=== PATIENT | female | born 1975 | race Caucasian/White ===

== ENCOUNTER 2016-03-17 23:15 | Emergency (ER) | payer OTHER ==
[2016-03-17 23:46] VITALS: BP 136/92; PULSE 78; TEMP 97.3; BMI 22.4
--- NOTE | 2016-03-17 23:48 | PDOC ---
History of Present Illness - General Chief Complaint: Pain, Acute Stated Complaint: NAUSEA/VOMITING Time Seen by Provider: 03/17/16 23:42 History Source: Patient Exam Limitations: No Limitations - History of Present Illness Travel History: No Timing/Duration: reports: intermittent Abdominal Pain Onset Location: reports: LLQ Pain Radiation: reports: no radiation Past History - Travel Traveled outside of the country in the last 30 days: No Close contact w/someone who was outside of country & ill: No - Past Medical History Allergies/Adverse Reactions: Allergies Allergy/AdvReac Type Severity Reaction Status Date / Time No Known Allergies Allergy Verified 03/17/16 23:43 Home Medications: Ambulatory Orders Levetiracetam [Keppra -] 1,000 mg PO BID 10/18/11 Ibuprofen [Motrin -] 600 mg PO QID PRN #28 tablet 03/28/15 Aspirin Coated [Ecotrin -] 325 mg PO DAILY #30 tablet. 03/31/15 Anemia: No Asthma: No Cancer: No Cardiac Disorders: No CVA: No COPD: No CHF: No Dementia: No Diabetes: No GI Disorders: Yes (ABD. PAIN) Disorders: No HTN: No Hypercholesterolemia: No Liver Disease: No Seizures: Yes Thyroid Disease: No - Surgical History Abdominal Surgery: Yes Appendectomy: No Cardiac Surgery: No Cholecystectomy: No Lung Surgery: No Neurologic Surgery: No Orthopedic Surgery: No - Immunization History Immunization Up to Date: Yes - Psycho/Social/Smoking Cessation Hx Suicidal Ideation: No Smoking Status: No Smoking History: Never smoked Have you smoked in the past 12 months: No Number of Cigarettes Smoked Daily: 0 Hx Alcohol Use: No Drug/Substance Use Hx: No Substance Use Type: None Hx Substance Use Treatment: No Abd/GI Specific PMHX - Complaint Specific PMHX Diverticulitis: No Gall Bladder Disease: No GERD: No Hepatitis: No Review of Systems - Review of Systems Able to Perform ROS?: Yes Comments:: 03/17/16 23:47 CONSTITUTIONAL: Absent: fever, chills, diaphoresis, generalized weakness, malaise, loss of appetite HEENT: Absent: rhinorrhea, nasal congestion, throat pain, throat swelling, difficulty swallowing, mouth swelling, ear pain, eye pain, visual Changes CARDIOVASCULAR: Absent: chest pain, loss of consciousness, palpitations, irregular heart rate, peripheral edema RESPIRATORY: Absent: cough, shortness of breath, dyspnea with exertion, orthopnea, wheezing, stridor, hemoptysis GASTROINTESTINAL: +nausea, vomiting, +llq pain Absent: abdominal distension, diarrhea, constipation, melena, hematochezia GENITOURINARY: Absent: dysuria, frequency, urgency, hesitancy, hematuria, flank pain, genital pain MUSCULOSKELETAL: Absent: myalgia, arthralgia, joint swelling SKIN: Absent: rash, itching, pallor HEMATOLOGIC/IMMUNOLOGIC: Absent: easy bleeding, easy bruising, lymphadenopathy, frequent infections ENDOCRINE: Absent: unexplained weight gain, unexplained weight loss, heat intolerance, cold intolerance NEUROLOGIC: Absent: headache, focal weakness or paresthesias, dizziness, unsteady gait, seizure, mental status changes, bladder or bowel incontinence PSYCHIATRIC: Absent: anxiety, depression, suicidal or homicidal ideation, hallucinations. Is the patient limited Filipino proficient: No *Physical Exam - Vital Signs Last Vital Signs Temp Pulse Resp BP Pulse Ox 97.3 F L 78 18 136/92 100 03/17/16 23:44 03/17/16 23:44 03/17/16 23:44 03/17/16 23:44 03/17/16 23:44 - Physical Exam Comments: 03/17/16 23:47 GENERAL: Well developed, well nourished. Awake and alert. No acute distress. HEENT: Normocephalic, atraumatic. PERRLA, EOMI. No conjunctival pallor. Sclera are non- icteric. Moist mucous membranes. Oropharynx is clear. NECK: Supple. Full ROM. No JVD. Carotid pulses 2+ and symmetric, without bruits. No thyromegaly. No lymphadenopathy. CARDIOVASCULAR: Regular rate and rhythm. No murmurs, rubs, or gallops. Distal pulses are 2+ and symmetric. PULMONARY: No evidence of respiratory distress. Lungs clear to auscultation bilaterally. No wheezing, rales or rhonchi. ABDOMINAL: +LLQ pain on palp Soft. Non-distended. No rebound or guarding. No organomegaly. Normoactive bowel sounds. MUSCULOSKELETAL Normal range of motion at all joints. No bony deformities or tenderness. No CVA tenderness. EXTREMITIES: No cyanosis. No clubbing. No edema. No calf tenderness. SKIN: Warm and dry. Normal capillary refill. No rashes. No jaundice. NEUROLOGICAL: Alert, awake, appropriate. Cranial nerves 2-12 intact. No deficits to light touch and temperature in face, upper extremities and lower extremities. No motor deficits in the in face, upper extremities and lower extremities. Normoreflexic in the upper and lower extremities. Normal speech. Toes are down- going bilaterally. Gait is normal without ataxia. PSYCHIATRIC: Cooperative. Good eye contact. Appropriate mood and affect. ED Treatment Course - LABORATORY CBC & Chemistry Diagram: 03/17/16 23:55 03/17/16 23:55 - RADIOLOGY Radiograph Interpretation: 03/18/16 04:15 Patient Name: Gertrudis Quinonez THIS IS A PRELIMINARY REPORT FROM [facility] DATE OF SERVICE: 2016-03-18 03:44:06.0 IMAGES: 357 EXAM: CT abdomen and pelvis without contrast COMPARISON: None. IMPRESSION: . Bilateral nephrolithiasis. Suggestion of a calculus in the distal left ureter with proximal moderate left hydroureteronephrosis and perinephric fat stranding. A small fluid seen in the left perirenal space. Extrarenal right pelvis. Multiple pelvic phleboliths. Underdistention versus wall thickening of the urinary bladder. Correlate clinically to exclude cystitis. Suggestion of a 2.3 x 2.0 cm left adnexal cyst. Degenerative disc disease with posterior disc protrusions at L4-5 and L5-S1. Is also moderate bilateral neural frontal narrowing at L5-S1. No acute fracture. Nonspecific mild hepatomegaly. No bowel obstruction or pneumoperitoneum. THIS DOCUMENT HAS BEEN ELECTRONICALLY SIGNED Ca Ojeda MD. Progress Note - Progress Note Progress Note: 40-year-old female presents to the emergency department complaining of nausea/ vomiting 8 hours with left lower quadrant pain radiating to left flank. Pain is described as 8/10 dull nonradiating intermittent discomfort. There are no exacerbating or alleviating factors. Patient denies fever, chills, headaches, chest pain, shortness of breath, vaginal bleed or discharge. *DC/Admit/Observation/Transfer Diagnosis at time of Disposition: Calculus of kidney - Discharge Dispostion Disposition: HOME Condition at time of disposition: Fair - Referrals Referrals: Sharda Pascual [Primary Care Provider] - Surinder Christine MD [Staff Physician] - - Patient Instructions Printed Discharge Instructions: Kidney Stones -- Adult Additional Instructions: Increase fluids Take Tylenol for mild pain Take the prescription of Toradol as needed for severe pain Follow-up with the urologist this week Return back to the emergency department for severe/persistent or worsening symptoms.
[2016-03-17] MEDS ORDERED: METOCLOPRAMIDE HCL INJECTION 10 MG/2 ML VIAL IVPUSH ONE (23:50)
[2016-03-17] MEDS ORDERED: SODIUM CHLORIDE 1,000 ML IV STA (23:50)
[2016-03-18] MEDS ORDERED: morphine CARPU-JECT 2 MG/1 ML DISP.SYRIN IVPUSH ONE (00:01)
[2016-03-18 00:08] LABS: BASOPHIL 0.5 % (0-2.0); EOSINOPHIL 0.2 % (0-4.5); MCH 29.4 pg (25.7-33.7); MCHC 33.3 g/dl (32.0-36.0); MEAN CELL VOLUME 88.3 fl (80-96); MEAN PLT VOLUME 8.2 fl (7.5-11.1); NEUTROPHILS 83.3 % (42.8-82.8); PLATELET COUNT 163 K/MM3 (134-434); RDW 12.7 % (11.6-15.6); WHITE BLOOD COUNT 8.4 K/mm3 (4.0-10.0)
[2016-03-18 00:36] LABS: ALBUMIN 3.9 g/dl (3.4-5.0); ANION GAP 12 (8-16); CALCIUM 8.7 mg/dL (8.5-10.1); CO2 23 mmol/L (21-32); CREATININE 0.8 mg/dL (0.55-1.02); GLUCOSE,RANDOM 192 mg/dL (74-106); SGOT/AST 16 U/L (15-37); SGPT/ALT 19 U/L (12-78)
[2016-03-18 00:37] LABS: ALK PHOS 81 U/L (45-117); BILIRUBIN,TOTAL 0.3 mg/dL (0.2-1.0); TOT PROT 7.1 g/dl (6.4-8.2)
[2016-03-18] MEDS ORDERED: KETOROLAC TROMETHAMINE 30 MG/1 ML VIAL IVPUSH ONE (01:09)
[2016-03-18] MEDS ORDERED: METOCLOPRAMIDE HCL INJECTION 10 MG/2 ML VIAL ONE (01:24)
[2016-03-18 01:38] LABS: URINE APPEARANCE SLCLOUDY; URINE BILIRUBIN NEGATIVE (NEGATIVE); URINE COLOR LTYELLOW; URINE GLUCOSE (UA) 2+ (NEGATIVE); URINE KETONE 2+ (NEGATIVE); URINE NITRITE NEGATIVE (NEGATIVE); URINE PROTEIN NEGATIVE (NEGATIVE); URINE UROBILINOGEN NEGATIVE E.U./dl (0.2-1.0)
[2016-03-18 01:39] LABS: URINE BLOOD 3+ (NEGATIVE); URINE LEUK ESTERASE TRACE (NEGATIVE)
[2016-03-18 01:51] LABS: URINE BACTERIA RARE /hpf (NONE SEEN); URINE MUCUS RARE; URINE RBC 154 /hpf (0-3)
[2016-03-18] MEDS ORDERED: OXYCODONE/APAP 5/325MG COMBO TABLET ONE (04:30)
[2016-03-18] MEDS ORDERED: OXYCODONE/APAP 5/325MG COMBO TABLET PO ONE (04:38)
== END 2016-03-18 04:40 | disposition home or self-care (01) ==
LOC: JER 23:15
PROC: 3E0333Z Introduction of Anti-inflammatory into Peripheral Vein, Percutaneous Approach (ICD-10-PCS; principal; 2016-03-17)
PROC: 3E033GC Introduction of Other Therapeutic Substance into Peripheral Vein, Percutaneous Approach (ICD-10-PCS; 2016-03-17)
DX: N20.0 Calculus of kidney (principal)
CPT/HCPCS: 36415; 74176; 80053; 81003; 81015; 84703; 85025; 96374; 96375; 99281-25

== ENCOUNTER → 2018-06-20 | Day surgery (SDC) | payer OTHER ==
--- NOTE | 2018-06-24 13:04 | PATH ---
Cytology Non-Gynecological Report Patient Name: FLOWER SCOTT [facility]. Rec. #: [id number] /Age/Gender: 1975 (Age: 43) / F Account: [id number] Location: RADIOLOGY INTER Taken: 06/20/2018 Received: 06/20/2018 Reported: 06/23/2018 Physicians: Karina Durham M.D. Specimen(s) Received BREAST,ULTRA SOUND GUIDED FNA Clinical History Left breast, 1-2:00, enlarging cysts, 3.12 cm Final Diagnosis BREAST, LEFT, 1- 2:00, ULTRASOUND GUIDED FINE NEEDLE ASPIRATION: PREDOMINANTLY COMPRISED OF BLOOD AND RARE DEBRIS. NO DUCTAL CELLS OR MACROPHAGES IDENTIFIED. Comment: Findings are insufficient for definitive diagnosis. Suggest clinical and radiologic correlation with repeat sampling, as clinically warranted. Electronically Signed Gogo Covarrubias M.D. Gross Description Approximately 50 cc of greenish fluid received fixed in 50% alcohol. One cytofunnel prepared and Pap stained. One cellblock prepared.
== END | disposition home or self-care (01) ==
LOC: JRADIR 08:40 → JRADUS-SUR 08:40
PROVIDERS: ATTEND Surgery
PROC: 0H9U3ZX Drainage of Left Breast, Percutaneous Approach, Diagnostic (ICD-10-PCS; principal; 2018-06-20)
DX: N60.02 Solitary cyst of left breast (principal)
CPT/HCPCS: 19000; 19001; 76942-TC; 87899; 88173

== ENCOUNTER 2018-11-18 11:48 | Inpatient (IN) | payer OTHER ==
--- NOTE | 2018-11-18 18:07 | HP ---
Admitting History and Physical - Primary Care Physician PCP: Misti George - Admission History of Present Illness: is a very pleasant 43-year-old right-handed female patientwith history of complex partial seizure presents to the hospital for elective admission with chief complaint of 2 episodes of fainting. Patient had a recent EEG monitoring at home which revealed no evidence of seizure. Patient is currently on Keppra 1000 mg twice daily. No report of any change in behavior no report of any recent fall. Patient denies any weight loss or weight gain patient is on a full aspirin few years ago patient presented to the hospital with extreme dizziness MRI of the brain confirmed the presence of stroke's extensive work up revealed no evidence of source of the stroke. History Source: Patient Limitations to Obtaining History: No Limitations - Past Medical History LEARNING MANAGER: Yes: Migraine, Seizure - Smoking History Smoking history: Never smoked Have you smoked in the past 12 months: No Aproximately how many cigarettes per day: 0 - Alcohol/Substance Use Hx Alcohol Use: No - Social History ADL: Independent History of Recent Travel: No Home Medications - Allergies Allergies/Adverse Reactions: Allergies Allergy/AdvReac Type Severity Reaction Status Date / Time No Known Allergies Allergy Verified 03/17/16 23:43 - Home Medications Home Medications: Ambulatory Orders levETIRAcetam [Keppra -] 1,000 mg PO BID 10/18/11 Ibuprofen [Motrin -] 600 mg PO QID PRN #28 tablet 03/28/15 Aspirin Coated [Ecotrin -] 325 mg PO DAILY #30 tablet. 03/31/15 Ketorolac Tromethamine [Toradol] 10 mg PO TID #21 tablet 03/18/16 Cephalexin [Keflex] 500 mg PO BID #14 capsule 08/12/17 Ondansetron HCl [Zofran] 4 mg PO QID #10 tablet 08/12/17 Oxycodone HCl/Acetaminophen [Oxycodone-Acetaminophen 5-325] 1 each PO QID #14 tablet MDD 6 08/12/17 Tamsulosin HCl [Flomax] 0.4 mg PO DAILY #7 cap.er.24h 08/12/17 Family Medical History Family History: Denies Review of Systems - Review of Systems Constitutional: reports: No Symptoms Eyes: reports: No Symptoms Neurological: reports: No Symptoms Physical Examination Constitutional: Yes: Well Nourished Eyes: Yes: WNL HENT: Yes: WNL Neck: Yes: WNL Neurological: Yes: Alert, Oriented, Babinski negative ...Motor Strength: WNL Problem List - Problems (1) Seizures Assessment/Plan: 1. admit to the elective admission for video EEG monitoring. 2. Continue Keppra the same. 3. Obtain Keppra level. 4. Seizure precautions. 5. Ativan when necessary seizure. 6. Connection to the video EEG monitoring digital analysis 72 hours. Code(s): R56.9 - UNSPECIFIED CONVULSIONS
[2018-11-18 19:05] VITALS: BMI 24.0
[2018-11-18] MEDS ORDERED: PT OWN MED DRAWER 7, Y5N ONE (21:20)
[2018-11-18] MEDS ORDERED: levETIRAcetam 250 MG TABLET (FP) PO SCH (22:00)
[2018-11-18] MEDS: OXcarbazepine 300 MG/5 ML UNIT DOSE CUPS PO SCH (22:51)
[2018-11-18 23:24] LABS: BASO % 0.7 % (0-2.0); EOS % 3.3 % (0-4.5); HEMATOCRIT 38.6 % (32.4-45.2); HEMOGLOBIN 12.9 GM/dL (10.7-15.3); LYMPH % 36.6 % (8-40); MCH 29.9 pg (25.7-33.7); MCHC 33.4 g/dl (32.0-36.0); MEAN CELL VOLUME 89.5 fl (80-96); NEUT % 48.4 % (42.8-82.8); PLATELET COUNT 182 K/MM3 (134-434); RBC 4.31 M/mm3 (3.60-5.2); RDW 13.3 % (11.6-15.6); WHITE BLOOD COUNT 5.5 K/mm3 (4.0-10.0)
[2018-11-18 23:53] LABS: ALBUMIN 3.3 g/dl (3.4-5.0); BILIRUBIN,DIRECT 0.1 mg/dL (0.0-0.2); BILIRUBIN,TOTAL 0.3 mg/dL (0.2-1); BLOOD UREA NITROGEN 20.2 mg/dL (7-18); CALCIUM 8.3 mg/dL (8.5-10.1); CREATININE 0.6 mg/dL (0.55-1.3); POTASSIUM 3.9 mmol/L (3.5-5.1); TOT PROT 6.2 g/dl (6.4-8.2)
[2018-11-19] MEDS: OXcarbazepine 300 MG/5 ML UNIT DOSE CUPS PO SCH ×2 (09:52→22:22)
[2018-11-19] MEDS: ASPIRIN 325 MG TABLET PO SCH (09:52)
--- NOTE | 2018-11-19 10:55 | PN ---
Progress Note, Physician History of Present Illness: eevents noted Chart reviewed slept very well On the 24 hour monitor with the video EEG no Report of any seizure-like activity - Current Medication List Current Medications: Active Medications Aspirin (Asa -) 325 mg PO DAILY [facility] Last Admin: 11/19/18 09:52 Dose: 325 mg Oxcarbazepine (Trileptal) 300 mg PO BID [facility] Last Admin: 11/19/18 09:52 Dose: 300 mg - Objective Vital Signs: Vital Signs Temperature 98.1 F 11/19/18 09:54 Pulse Rate 62 11/19/18 09:54 Respiratory Rate 18 11/19/18 09:54 Blood Pressure 146/71 11/19/18 09:54 O2 Sat by Pulse Oximetry (%) 95 11/18/18 21:00 Constitutional: Yes: Well Nourished Eyes: Yes: WNL HENT: Yes: WNL Neurological: Yes: Alert, Oriented, Babinski negative ...Motor Strength: WNL Labs: CBC, BMP 11/18/18 22:22 11/18/18 22:22 Problem List - Problems (1) Seizures Assessment/Plan: 1. continue oxycodone carbamazepine 300 mg twice daily. 2. Follow-up blood work. 3. Seizure precautions. 4. Increase by mouth fluid intake. Code(s): R56.9 - UNSPECIFIED CONVULSIONS
--- NOTE | 2018-11-19 12:13 | EKG ---
Test Reason : Blood Pressure : / mmHG Vent. Rate : 064 BPM Atrial Rate : 064 BPM P-R Int : 154 ms QRS Dur : 092 ms QT Int : 434 ms P-R-T Axes : 046 023 037 degrees QTc Int : 447 ms NORMAL SINUS RHYTHM NORMAL ECG WHEN COMPARED WITH ECG OF 30-MAR-2015 12:32, NO SIGNIFICANT CHANGE WAS FOUND Confirmed by CHRIS CLEMENTS MD ([id number]) on 11/19/2018 12:12:50 PM Referred By: Confirmed By:CHRIS CLEMENTS MD
[2018-11-20] MEDS ORDERED: PT OWN MED DRAWER 7, Y5N ONE ×2 (10:12→21:46)
[2018-11-20] MEDS: ASPIRIN 325 MG TABLET PO SCH (10:17)
[2018-11-20] MEDS: OXcarbazepine 300 MG/5 ML UNIT DOSE CUPS PO SCH ×2 (10:17→22:08)
--- NOTE | 2018-11-20 17:37 | PN ---
Progress Note, Physician History of Present Illness: stephon well N seziure No fall No blurry vuiosn - Current Medication List Current Medications: Active Medications Aspirin (Asa -) 325 mg PO DAILY [facility] Last Admin: 11/20/18 10:17 Dose: 325 mg Oxcarbazepine (Trileptal) 300 mg PO BID [facility] Last Admin: 11/20/18 10:17 Dose: 300 mg - Objective Vital Signs: Vital Signs Temperature 98.2 F 11/20/18 14:18 Pulse Rate 60 11/20/18 14:18 Respiratory Rate 16 11/20/18 14:18 Blood Pressure 128/70 11/20/18 14:18 O2 Sat by Pulse Oximetry (%) 100 11/19/18 21:00 Constitutional: Yes: Well Nourished Eyes: Yes: WNL HENT: Yes: WNL Neurological: Yes: Alert, Oriented ...Motor Strength: WNL Labs: CBC, BMP 11/18/18 22:22 11/18/18 22:22 Problem List - Problems (1) Seizures Assessment/Plan: 1. seziure precautions 2. VEEG 3. Ativan prn Code(s): R56.9 - UNSPECIFIED CONVULSIONS
[2018-11-21] MEDS ORDERED: PT OWN MED DRAWER 7, Y5N ONE (09:13)
[2018-11-21] MEDS: ASPIRIN 325 MG TABLET PO SCH (10:53)
[2018-11-21] MEDS: OXcarbazepine 300 MG/5 ML UNIT DOSE CUPS PO SCH (10:53)
[2018-11-21 15:07] VITALS: BP 117/68; PULSE 70; TEMP 98.3
== END 2018-11-21 15:53 | disposition home or self-care (01) | DRG 53 ==
LOC: J4S 17:33
PROVIDERS: ADMIT Psychiatry & Neurology Neurology; ATTEND Psychiatry & Neurology Neurology
PROC: 4A10X4Z Monitoring of Central Nervous Electrical Activity, External Approach (ICD-10-PCS; principal; 2018-11-18)
DX: R56.9 Unspecified convulsions (principal)
CPT/HCPCS: 36415; 80048; 80076; 85025; 93005; 93010; 95951

== ENCOUNTER → 2019-08-07 | Day surgery (SDC) | payer OTHER ==
--- NOTE | 2019-08-10 15:35 | PATH ---
Surgical Pathology Report Patient Name: FLOWER SCOTT [facility]. Rec. #: [id number] /Age/Gender: 1975 (Age: 44) / F Account: [id number] Location: [facility] RADIOLOGY U Taken: 08/07/2019 Received: 08/07/2019 Reported: 08/10/2019 Physicians: Karina Yu M.D. Specimen(s) Received LEFT BREAST 10:00 5-7 CM FN CORE BIOPSY Clinical History Ultrasound findings :suspicious Final Diagnosis BREAST, LEFT, 10:00, 5-7 CM FN, CORE BIOPSY: INVASIVE DUCTAL CARCINOMA, WELL DIFFERENTIATED, MEASURING AT LEAST 4 MM IN GREATEST DIMENSION IN THIS MATERIAL. (SEE NOTE) DUCTAL CARCINOMA IN SITU (DCIS), CRIBRIFORM AND MICROPAPILLARY/FLAT TYPE, INTERMEDIATE NUCLEAR GRADE WITH FOCAL NECROSIS. Note: Myoepithelial immunohistochemical marker SMM-HC demonstrates the lack of myoepithelial cells in the invasive carcinoma. This finding supports the diagnosis. Results of ER and SC studies performed on this specimen at [facility] are as follows: ER (clone [id number] mouse monoclonal antibody by [employer]): _X_ Positive: > 95 % nuclear staining with strong intensity. PgR (clone16 mouse monoclonal antibody by [employer]): _X_ Positive: > 95 % nuclear staining with strong intensity. Results of Her2 & Ki67 studies will be reported separately in an addendum. Positive and negative controls (internal if applicable) show appropriate results. Formalin fixation and cold ischemic times are within current ASCO/CAP recommendations for ER, SC and Her2 testing. Electronically Signed Cathryn Julian M.D. Addendum Reported: 08/12/2019 Addendum Diagnosis Results of Her2 (IHC) & Ki-67 studies performed at [place], [place] ([id number]) are as follows: Her2 IHC (EP3 from [employer], formerly known as [id number], using [employer] Polymer Refine detection kit):1+ (negative). Ki-67:< 1% (low proliferative index). Comment: Myoepithelial immunohistochemical marker p63 (performed at [facility]) demonstrates the lack of myoepithelial cells in the invasive carcinoma. This finding supports the diagnosis. Positive and negative controls (internal if applicable) show appropriate results. Cathryn Julian M.D. Gross Description Received in formalin labeled "left breast 10:00, 5-7 cmfn," is a 2.2 x 1.4 x 0.2 cm aggregate of multiple moore-yellow, irregular to cylindrical portions of fibroadipose tissue. The formalin is filtered and the specimen is entirely submitted in one cassette. Time to formalin fixation: 2 minutes Total formalin fixation time: Approximately 6 hours. 08/07/2019 [facility]08/07/2019
== END | disposition home or self-care (01) ==
LOC: FRADUS-SUR 12:31
PROVIDERS: ATTEND Surgery
PROC: 0HBU3ZX Excision of Left Breast, Percutaneous Approach, Diagnostic (ICD-10-PCS; principal; 2019-08-07)
DX: C50.212 Malignant neoplasm of upper-inner quadrant of left female breast (principal); Z17.0 Estrogen receptor positive status [ER+]; N63.22 Unspecified lump in the left breast, upper inner quadrant
CPT/HCPCS: 19083; 77065-TC; 87899; 88305-TC; 88342-TC; A4648

== ENCOUNTER 2020-11-20 06:54 | Emergency (ER) | payer OTHER ==
[2020-11-20 07:07] VITALS: BMI 24.7
[2020-11-20] MEDS ORDERED: ACETAMINOPHEN 1000 MG/100 ML VIAL (NON FORMULARY) IVPB ONE (08:15)
[2020-11-20] MEDS ORDERED: ONDANSETRON 4 MG/2 ML VIAL IVPUSH ONE (08:16)
[2020-11-20 08:44] LABS: BASO % 0.3 % (0-2.0); EOS % 0.5 % (0-4.5); HEMATOCRIT 41.6 % (32.4-45.2); HEMOGLOBIN 14.3 GM/dL (10.7-15.3); LYMPH % 12.4 % (8-40); MCH 29.6 pg (25.7-33.7); MCHC 34.4 g/dl (32.0-36.0); MEAN CELL VOLUME 85.9 fl (80-96); MEAN PLT VOLUME 7.1 fl (7.5-11.1); MONO % 6.1 % (3.8-10.2); NEUT % 80.7 % (42.8-82.8); PLATELET COUNT 214 10^3/uL (134-434); RBC 4.84 M/mm3 (3.60-5.2); RDW 13.2 % (11.6-15.6); WHITE BLOOD COUNT 8.1 K/mm3 (4.0-10.0)
[2020-11-20 09:11] LABS: CALCIUM 8.8 mg/dL (8.5-10.1)
[2020-11-20 09:12] LABS: ALBUMIN 3.6 g/dl (3.4-5.0); BLOOD UREA NITROGEN 15.8 mg/dL (7-18)
[2020-11-20 09:15] LABS: CREATININE 0.6 mg/dL (0.55-1.3)
[2020-11-20] MEDS ORDERED: ACETAMINOPHEN INJECTION 100 ML IVPB ONE (09:16)
[2020-11-20] MEDS ORDERED: ONDANSETRON 4 MG/2 ML VIAL ONE (09:16)
[2020-11-20 09:17] LABS: BILIRUBIN,TOTAL 0.3 mg/dL (0.2-1); TOT PROT 7.1 g/dl (6.4-8.2)
[2020-11-20 12:47] LABS: EPI CELLS 28 /uL (0-25.1); HYALINE CASTS 1 /uL (0-3.1); URINE APPEARANCE CLEAR; URINE BACTERIA 254 /uL (0-1359); URINE BILIRUBIN NEGATIVE (NEGATIVE); URINE COLOR YELLOW; URINE GLUCOSE (UA) NEGATIVE (NEGATIVE); URINE KETONE NEGATIVE (NEGATIVE); URINE LEUK ESTERASE 2+ (NEGATIVE); URINE NITRITE NEGATIVE (NEGATIVE); URINE PROTEIN NEGATIVE (NEGATIVE); URINE RBC 22 /uL (0-23.9); URINE UROBILINOGEN 0.2 mg/dL (0.2-1.0); URINE WBC 41 /uL (0-25.8)
[2020-11-20 13:23] VITALS: BP 142/72; PULSE 73; TEMP 97.4
== END 2020-11-20 13:33 | disposition home or self-care (01) ==
LOC: JER 06:54
PROC: 3E033GC Introduction of Other Therapeutic Substance into Peripheral Vein, Percutaneous Approach (ICD-10-PCS; principal; 2020-11-20)
DX: R56.9 Unspecified convulsions (principal); R51.9 Headache, unspecified; Z91.14 Patient's other noncompliance with medication regimen
CPT/HCPCS: 36415; 70450-TC; 71045-TC-FY; 80053; 80177; 81003; 84703; 85025; 87086; 93005; 93010; 96374; 96375; 99285-25; C9803; J0131; U0003; U0005

== ENCOUNTER 2023-07-14 06:46 | Emergency (ER) | payer OTHER ==
[2023-07-14 06:56] VITALS: RESP 18; TEMP 98.2; BMI 25.6
[2023-07-14] MEDS ORDERED: ACETAMINOPHEN INJECTION 100 ML IVPB ONE (07:47)
[2023-07-14] MEDS: ACETAMINOPHEN 1000 MG/100 ML BAG IVPB ONE (08:03)
[2023-07-14 08:09] LABS: HEMATOCRIT 41.8 % (32.4-45.2); HEMOGLOBIN 14.3 GM/dL (10.7-15.3); MCH 29.6 pg (25.7-33.7); MCHC 34.3 g/dl (32.0-36.0); MEAN CELL VOLUME 86.3 fl (80-96); MEAN PLT VOLUME 6.9 fl (7.5-11.1); PLATELET COUNT 256 10^3/uL (134-434); RBC 4.85 M/mm3 (3.60-5.2); RDW 13.3 % (11.6-15.6); WHITE BLOOD COUNT 5.1 K/mm3 (4.0-10.0)
[2023-07-14 08:13] LABS: EPI CELLS 6 /uL (0-25.1); HYALINE CASTS 0 /uL (0-3.1); URINE APPEARANCE CLOUDY; URINE BACTERIA 11 /uL (0-1359); URINE BILIRUBIN NEGATIVE (NEGATIVE); URINE COLOR YELLOW; URINE GLUCOSE (UA) NEGATIVE (NEGATIVE); URINE KETONE TRACE (NEGATIVE); URINE LEUK ESTERASE 1+ (NEGATIVE); URINE NITRITE NEGATIVE (NEGATIVE); URINE PROTEIN TRACE (NEGATIVE); URINE RBC 9105 /uL (0-23.9); URINE WBC 15 /uL (0-25.8)
[2023-07-14 08:16] LABS: INR 0.89 (0.83-1.09); PROTHROMBIN TIME (PATIENT) 10.3 SEC (9.7-13.0)
[2023-07-14 08:19] LABS: ACTIVATED PTT 26.9 SECONDS (25.2-36.5)
[2023-07-14 08:26] LABS: POTASSIUM 4.4 mmol/L (3.5-5.1)
[2023-07-14 08:28] LABS: ALBUMIN 3.5 g/dl (3.4-5.0); CALCIUM 9.1 mg/dL (8.5-10.1)
[2023-07-14 08:29] LABS: BLOOD UREA NITROGEN 20.5 mg/dL (7-18)
[2023-07-14 08:31] LABS: CREATININE 0.8 mg/dL (0.55-1.3)
[2023-07-14 08:33] LABS: BILIRUBIN,TOTAL 0.3 mg/dL (0.2-1); TOT PROT 6.9 g/dl (6.4-8.2)
[2023-07-14 10:45] VITALS: BP 137/69; PULSE 60
== END 2023-07-14 11:07 | disposition home or self-care (01) ==
LOC: JER 06:46
PROC: 3E033NZ Introduction of Analgesics, Hypnotics, Sedatives into Peripheral Vein, Percutaneous Approach (ICD-10-PCS; principal; 2023-07-14)
DX: N20.0 Calculus of kidney (principal); R10.30 Lower abdominal pain, unspecified; R31.9 Hematuria, unspecified
CPT/HCPCS: 36415; 74176-TC; 80053; 81003; 84703; 85027; 85610; 85730; 86850; 86900; 86901; 87086; 93005; 93010; 99285-25; J0131